=== PATIENT | male | born 1970 | race Caucasian/White ===

== ENCOUNTER 2017-12-11 16:31 | Emergency (ER) | payer MEDICAID ==
[~2017-12-11] VITALS: Ht 160 cm; Wt 72.6 kg
[2017-12-11 16:36] VITALS: Ht 160 cm; Wt 72.6 kg
[2017-12-11 17:07] LABS: microscopic required? NO
[2017-12-11 17:20] LABS: UA SPECIFIC GRAVITY >=1.030 (1.005-1.035); urine erythrocyte NEGATIVE (NEGATIVE)
[2017-12-11 17:37] LABS: BASOPHIL % 0.3 % (0-2); RED CELL DISTRIBUTION WIDTH 13.8 % (11.5-14.5)
[2017-12-11 17:41] LABS: PLATELET COUNT 126 x10^3mcL (130-400)
[2017-12-11 17:44] LABS: CALCIUM 8.6 mg/dL (8.5-10.1); CARBON DIOXIDE 27.4 mmol/L (21-32); CHLORIDE SERUM 105 mmol/L (98-107); CREATININE SERUM 1.1 mg/dL (0.7-1.3); GFR1 > 60 mL/min; GLUCOSE SERUM 155 mg/dL (74-106); POTASSIUM SERUM 3.5 mmol/L (3.5-5.1); SODIUM SERUM 142 mmol/L (136-145)
[2017-12-11 17:49] LABS: ALBUMIN 3.6 g/dL (3.4-5.0); ALKALINE PHOSPHATASE 51 U/L (46-116); AST/SGOT 25 U/L (15-37); BILIRUBIN TOTAL 0.48 mg/dL (0.20-1.00); TOTAL PROTEIN, SERUM 6.9 g/dL (6.4-8.2)
[2017-12-11 18:20] LABS: ALT/SGPT 18 U/L (16-63)
[2017-12-11 18:42] VITALS: BP 132/69
== END 2017-12-11 18:42 | disposition home or self-care (01) ==
LOC: ED 16:31
PROVIDERS: Emergency Medicine
DX: K51.90 Ulcerative colitis, unspecified, without complications (principal); N20.0 Calculus of kidney
CPT/HCPCS: J1885; J7030; J7512

== ENCOUNTER 2018-04-16 07:15 | Emergency (ER) | payer MEDICAID ==
[~2018-04-16] VITALS: Ht 160 cm; Wt 72.6 kg
[2018-04-16 07:20] VITALS: Ht 160 cm; Wt 72.6 kg
[2018-04-16 09:03] VITALS: BP 135/78
== END 2018-04-16 09:03 | disposition home or self-care (01) ==
LOC: ED 07:15
DX: R10.12 Left upper quadrant pain (principal); K51.90 Ulcerative colitis, unspecified, without complications; I10 Essential (primary) hypertension
CPT/HCPCS: J1885

== ENCOUNTER 2018-06-12 07:09 | Emergency (ER) | payer MEDICAID ==
[~2018-06-12] VITALS: Ht 160 cm; Wt 64.9 kg
[2018-06-12 07:30] VITALS: BP 107/65; Ht 160 cm; Wt 64.9 kg
== END 2018-06-12 08:50 | disposition home or self-care (01) ==
LOC: ED 07:09
DX: K51.90 Ulcerative colitis, unspecified, without complications (principal)
CPT/HCPCS: 36415

== ENCOUNTER 2018-10-09 07:15 | Emergency (ER) | payer MEDICAID ==
[~2018-10-09] VITALS: Ht 160 cm; Wt 69.4 kg
[2018-10-09 07:29] VITALS: Ht 160 cm; Wt 69.4 kg
[2018-10-09 10:02] VITALS: BP 127/75
== END 2018-10-09 10:02 | disposition home or self-care (01) ==
LOC: ED 07:15
DX: K51.90 Ulcerative colitis, unspecified, without complications (principal); K92.1 Melena; M19.90 Unspecified osteoarthritis, unspecified site; Z87.442 Personal history of urinary calculi

== ENCOUNTER 2019-02-05 09:05 | Emergency (ER) | payer MEDICAID ==
[~2019-02-05] VITALS: Ht 160 cm; Wt 69.9 kg
[2019-02-05 09:12] VITALS: Ht 160 cm; Wt 69.9 kg
[2019-02-05 11:19] VITALS: BP 120/75
== END 2019-02-05 11:19 | disposition home or self-care (01) ==
LOC: ED 09:05
DX: R10.9 Unspecified abdominal pain (principal); R31.29 Other microscopic hematuria; Z76.0 Encounter for issue of repeat prescription; M19.90 Unspecified osteoarthritis, unspecified site; Z87.442 Personal history of urinary calculi

== ENCOUNTER 2019-10-01 07:13 | Emergency (ER) | payer MEDICAID ==
[~2019-10-01] VITALS: Ht 160 cm; Wt 75.7 kg
[2019-10-01 07:19] VITALS: Ht 160 cm; Wt 75.7 kg
[2019-10-01 08:42] VITALS: BP 113/70
== END 2019-10-01 08:42 | disposition home or self-care (01) ==
LOC: ED 07:13
DX: R07.89 Other chest pain (principal); K08.89 Other specified disorders of teeth and supporting structures; J02.9 Acute pharyngitis, unspecified; Z87.442 Personal history of urinary calculi
CPT/HCPCS: J1885

== ENCOUNTER 2019-12-30 07:12 | Emergency (ER) | payer MEDICAID ==
[~2019-12-30] VITALS: Ht 160 cm; Wt 74.8 kg
[2019-12-30 07:32] VITALS: Ht 160 cm; Wt 74.8 kg
[2019-12-30 08:50] LABS: BASOPHIL % 0.8 % (0-2); PLATELET COUNT 120 x10^3mcL (130-400); RED CELL DISTRIBUTION WIDTH 13.1 % (11.5-14.5)
[2019-12-30 09:15] LABS: CALCIUM 8.2 mg/dL (8.5-10.1); CARBON DIOXIDE 26.3 mmol/L (21-32); CHLORIDE SERUM 107 mmol/L (98-107); GFR1 > 60 mL/min; GLUCOSE SERUM 90 mg/dL (74-106); POTASSIUM SERUM 4.2 mmol/L (3.5-5.1); SODIUM SERUM 142 mmol/L (136-145)
[2019-12-30 09:19] LABS: ALBUMIN 3.9 g/dL (3.4-5.0); ALKALINE PHOSPHATASE 57 U/L (46-116); ALT/SGPT 27 U/L (16-63); AST/SGOT 24 U/L (15-37); BILIRUBIN TOTAL 0.5 mg/dL (0.20-1.00); LIPASE 205 IU/L (73-393); TOTAL PROTEIN, SERUM 7.3 g/dL (6.4-8.2)
[2019-12-30 11:07] VITALS: BP 133/84
== END 2019-12-30 11:07 | disposition home or self-care (01) ==
LOC: ED 07:12
PROVIDERS: Emergency Medicine
DX: K51.90 Ulcerative colitis, unspecified, without complications (principal); Z87.442 Personal history of urinary calculi
CPT/HCPCS: C9113; J2930

== ENCOUNTER 2020-02-11 08:14 | Emergency (ER) | payer MEDICAID ==
[~2020-02-11] VITALS: Ht 160 cm; Wt 73.0 kg
[2020-02-11 08:18] VITALS: Ht 160 cm; Wt 73.0 kg
[2020-02-11 09:25] LABS: CALCIUM 8.5 mg/dL (8.5-10.1); CARBON DIOXIDE 31.1 mmol/L (21-32); CHLORIDE SERUM 108 mmol/L (98-107); GFR1 > 60 mL/min; GLUCOSE SERUM 77 mg/dL (74-106); POTASSIUM SERUM 3.3 mmol/L (3.5-5.1); SODIUM SERUM 142 mmol/L (136-145)
[2020-02-11 09:29] LABS: ALBUMIN 3.8 g/dL (3.4-5.0); ALKALINE PHOSPHATASE 55 U/L (46-116); ALT/SGPT 26 U/L (16-63); AST/SGOT 22 U/L (15-37); BILIRUBIN TOTAL 0.34 mg/dL (0.20-1.00); TOTAL PROTEIN, SERUM 7.4 g/dL (6.4-8.2)
[2020-02-11 09:34] LABS: BASOPHIL % 0.4 % (0-2); RED CELL DISTRIBUTION WIDTH 13.7 % (11.5-14.5)
[2020-02-11 09:35] LABS: PLATELET COUNT 126 x10^3mcL (130-400)
[2020-02-11 13:41] VITALS: BP 129/73
== END 2020-02-11 13:41 | disposition home or self-care (01) ==
LOC: ED 08:14
PROVIDERS: Student in an Organized Health Care Education/Training Program
DX: K51.90 Ulcerative colitis, unspecified, without complications (principal); M19.90 Unspecified osteoarthritis, unspecified site; Z87.442 Personal history of urinary calculi
CPT/HCPCS: 36415

== ENCOUNTER 2020-04-01 01:55 | Emergency (ER) | payer SELFPAY ==
[~2020-04-01] VITALS: Ht 167.6 cm; Wt 71.3 kg
[2020-04-01 02:03] VITALS: Ht 167.6 cm; Wt 71.3 kg
[2020-04-01 03:38] VITALS: BP 117/68
== END 2020-04-01 03:38 | disposition home or self-care (01) ==
LOC: ED 01:55
DX: R10.9 Unspecified abdominal pain (principal); Z87.442 Personal history of urinary calculi
CPT/HCPCS: J1885; J7030